=== PATIENT | male | born 1985 | race Asian ===

== ENCOUNTER 2018-10-18 06:27 | Day surgery (SDC) | payer OTHER ==
[~2018-10-18] VITALS: Ht 177.8 cm; Wt 79.0 kg
[~2018-10-18 06:27] MED LIST: NOCURR; RINGERS SOLUTION,LACTATED 1,000 ML IV ONE
[2018-10-18] MEDS ORDERED: PROPOFOL 1% 20 ML VIAL IVP ONE (06:28)
[2018-10-18] MEDS ORDERED: ONDANSETRON HCL 4 MG/2 ML VIAL IVP ONE (06:28)
[2018-10-18] MEDS ORDERED: ROCURONIUM BROMIDE 10 MG/ML 5 ML VIAL IVP ONE (06:28)
[2018-10-18] MEDS ORDERED: ESMOLOL HCL 10 MG/ML 10 ML VIAL IVP ONE (06:28)
[2018-10-18] MEDS ORDERED: DEXAMETHASONE SOD PHOS 4 MG/ML VIAL IVP ONE (06:28)
[2018-10-18] MEDS ORDERED: NEOSTIGMINE METHYLSULFATE 1 MG/ML 10 ML VIAL IVP ONE (06:28)
[2018-10-18] MEDS ORDERED: LIDOCAINE/PF 2% 5 ML VIAL IM ONE (06:28)
[2018-10-18] MEDS ORDERED: EPHEDrine SULFATE 50 MG/ML VIAL IM ONE (06:28)
[2018-10-18] MEDS ORDERED: MIDAZOLAM HCL 2 MG/2 ML VIAL IVP ONE (06:28)
[2018-10-18] MEDS ORDERED: GLYCOPYRROLATE 0.2 MG/ML VIAL IM ONE (06:28)
[2018-10-18] MEDS ORDERED: FentaNYL CITRATE-PF 100 MCG/2 ML VIAL IVP ONE (06:28)
[2018-10-18] MEDS ORDERED: RINGERS SOLUTION,LACTATED 1,000 ML IV ONE (06:30)
[2018-10-18] MEDS ORDERED: ATOR10TA84 PO (06:59)
[2018-10-18] MEDS ORDERED: METF-445 PO (06:59)
[2018-10-18 07:49] LABS: PROTHROMBIN TIME 10.6 SEC (9.4-11.6)
[2018-10-18] MEDS ORDERED: FentaNYL CITRATE-PF 100 MCG/2 ML VIAL IVP PRN ×2 (08:15)
[2018-10-18] MEDS ORDERED: MEPERIDINE-PF 25 MG/ML VIAL IVP PRN ×2 (08:15)
[2018-10-18] MEDS ORDERED: HYDROmorphone 2 MG/ML SYRINGE IVP PRN ×2 (08:15)
[2018-10-18 08:24] LABS: GLUCOMETER DEV NAME(LOC) SDS.; GLUCOSE,POINT OF CARE 110 MG/DL (70-110)
[2018-10-18] MEDS ORDERED: AMPICILLIN SODIUM 1 GM/VIAL ONE (09:02)
== END 2018-10-18 11:40 | disposition home or self-care (01) ==
LOC: SURGERY 06:27
PROVIDERS: ATTEND Dentist General Practice
DX: K05.30 Chronic periodontitis, unspecified (principal); E78.5 Hyperlipidemia, unspecified; E11.9 Type 2 diabetes mellitus without complications; I10 Essential (primary) hypertension; Z79.899 Other long term (current) drug therapy
CPT/HCPCS: 36415; 41899; 71045; 82962; 85610; 85730; 93005; J0290; J1100; J2250; J2405; J2704; J3010; J3490 ×5; J7120

== ENCOUNTER 2020-09-24 06:28 | Day surgery (SDC) | payer OTHER, MEDICAID ==
[~2020-09-24] VITALS: Ht 172.7 cm; Wt 77.3 kg
[~2020-09-24 06:28] MED LIST changes: +ATOR10TA84 PO; +METF-445 PO; -NOCURR; +VANCOMYCIN HCL 1 GM/VIAL ONE
[2020-09-24] MEDS ORDERED: RINGERS SOLUTION,LACTATED 1,000 ML IV ONE (06:30)
[2020-09-24] MEDS ORDERED: AMPICILLIN SODIUM 1 GM/VIAL ONE (07:25)
[2020-09-24] MEDS ORDERED: SODIUM CHLORIDE 0.9% 100 ML ONE (07:26)
[2020-09-24 07:33] LABS: BASOPHILS % (AUTO) 0.3 % (0.0-2.0); EOSINOPHILS % (AUTO) 6.9 % (1.0-6.0); HEMATOCRIT 45.3 % (41-53); HEMOGLOBIN 15.4 g/dL (13.5-17.5); LYMPHOCYTES % (AUTO) 27.7 % (22.0-44.0); MEAN CORPUSCULAR HEMOGLOBIN 28.7 pg (26.0-34.0); MEAN CORPUSCULAR VOLUME 85 fL (80-100); MONOCYTES # (AUTO) 0.6 K/uL (0.1-1.0); MONOCYTES % (AUTO) 8.3 % (2.0-9.0); NEUTROPHILS # (AUTO) 4.1 K/uL (1.8-7.7); NEUTROPHILS % (AUTO) 56.8 % (40.0-70.0); PLATELET COUNT (AUTO) 243 K/uL (150-450); RED BLOOD CELL COUNT(AUTO) 5.36 MIL/uL (4.50-5.90); RED CELL DISTRIBUTION WIDTH 12.9 % (11.5-14.5)
[2020-09-24 07:45] LABS: ANION GAP 7 mmol/L (8-16); CALCIUM, TOTAL 9.3 mg/dL (8.8-10.5); CARBON DIOXIDE 26 mmol/L (22-29); CHLORIDE 102 mmol/L (98-107); CREATININE 0.93 mg/dL (0.60-1.30); GLOMERULAR FILTR. RATE CALC > 60 mL/min (>60); GLUCOSE,RANDOM 108 mg/dL (70-110); SODIUM SERUM 135 mmol/L (136-145); UREA NITROGEN, BLOOD 20 mg/dL (7-18)
[2020-09-24 07:50] LABS: ALANINE AMINOTRANSFERASE 81 U/L (12-78); ALBUMIN 4.4 g/dL (3.4-5.0); ALKALINE PHOSPHATASE 199 U/L (46-116); ASPARTATE AMINOTRANSFERASE 31 U/L (15-37); BILIRUBIN,TOTAL 1.2 mg/dL (0.1-1.0); TOTAL PROTEIN, SERUM 7.9 g/dL (6.4-8.2)
[2020-09-24 07:51] LABS: PROTHROMBIN TIME 10.9 SEC (9.4-11.6)
[2020-09-24 08:04] LABS: COVID AG,FIA SOURCE NASOPHARYNGEAL
[2020-09-24] MEDS ORDERED: ACETAMINOPHEN 1000 MG/ISO-OSM 100 ML IV ONE (09:29)
[2020-09-24] MEDS ORDERED: OXYGEN THERAPY IH SCH (09:30)
[2020-09-24] MEDS ORDERED: MEPERIDINE-PF 25 MG/ML VIAL IVP PRN (09:30)
[2020-09-24] MEDS ORDERED: HYDROmorphone 2 MG/ML VIAL IVP PRN (09:30)
[2020-09-24] MEDS ORDERED: FentaNYL CITRATE PF 100 MCG/2 ML VIAL IVP PRN (09:30)
[2020-09-24] MEDS ORDERED: FentaNYL CITRATE PF 100 MCG/2 ML VIAL IVP ONE (12:00)
[2020-09-24] MEDS ORDERED: MIDAZOLAM HCL 2 MG/2 ML VIAL IVP ONE (12:00)
== END 2020-09-24 11:15 | disposition home or self-care (01) ==
LOC: SURGERY 06:28
PROVIDERS: ATTEND Dentist General Practice
DX: K02.9 Dental caries, unspecified (principal); K05.30 Chronic periodontitis, unspecified; K03.6 Deposits [accretions] on teeth; I10 Essential (primary) hypertension; E78.00 Pure hypercholesterolemia, unspecified; E11.9 Type 2 diabetes mellitus without complications; E78.5 Hyperlipidemia, unspecified; Z98.890 Other specified postprocedural states; Z79.899 Other long term (current) drug therapy
CPT/HCPCS: 36415; 41899; 71045; 80053; 85025; 85610; 85730; 87426; 93005; C9803; J0131; J0290; J2250; J3010; J3370; J7050; J7120

== ENCOUNTER 2022-02-27 20:49 | Emergency (ER) | payer OTHER ==
[~2022-02-27] VITALS: Ht 170.2 cm; Wt 79.0 kg
[~2022-02-27 20:49] MED LIST changes: -RINGERS SOLUTION,LACTATED 1,000 ML IV ONE; -VANCOMYCIN HCL 1 GM/VIAL ONE
[2022-02-27] MEDS ORDERED: ACETAMINOPHEN 500 MG TABLET PO ONE (22:30)
[2022-02-27] MEDS ORDERED: PROPARACAINE HCL 0.5% 15 ML OPHTHALMIC SOLUTION OU ONE (22:30)
[2022-02-27] MEDS ORDERED: GENTAMICIN SULFATE 0.3% OPHTHALMIC SOLUTION 5 ML OU ONE (22:30)
[2022-02-27] MEDS ORDERED: ACET-66 PO (22:37)
[2022-02-27] MEDS ORDERED: CEPH-558 PO (22:37)
[2022-02-27] MEDS ORDERED: BACI28OI29 TP (22:37)
[2022-02-27 23:02] VITALS: BP 138/82
== END 2022-02-27 23:08 | disposition home or self-care (01) ==
LOC: EMS 20:50
DX: H10.9 Unspecified conjunctivitis (principal); S50.811A Abrasion of right forearm, initial encounter; R62.50 Unspecified lack of expected normal physiological development in childhood; W55.03XA Scratched by cat, initial encounter; Y93.89 Activity, other specified; Y92.89 Other specified places as the place of occurrence of the external cause; Y99.8 Other external cause status
CPT/HCPCS: 99283; 99284

== ENCOUNTER 2025-06-12 06:20 | Day surgery (SDC) | payer OTHER ==
[~2025-06-12] VITALS: Ht 172.7 cm; Wt 77.7 kg
[~2025-06-12 06:20] MED LIST changes: +ACET-66 PO; +ATOR10TA PO; -ATOR10TA84 PO; +BACI28.410 TP; +CEPH-558 PO; +RINGERS SOLUTION,LACTATED 1,000 ML IV ONE
[2025-06-12] MEDS ORDERED: SUGAMMADEX SODIUM 200 MG/2 ML VIAL IVP ONE (06:21)
[2025-06-12] MEDS ORDERED: ONDANSETRON HCL 4 MG/2 ML VIAL IVP ONE (06:21)
[2025-06-12] MEDS ORDERED: ROCURONIUM BROMIDE 10 MG/ML 5 ML VIAL IV ONE (06:21)
[2025-06-12] MEDS ORDERED: LIDOCAINE/PF 2% 5 ML VIAL IM ONE (06:21)
[2025-06-12] MEDS ORDERED: PROPOFOL 1% 20 ML VIAL IVP ONE (06:21)
[2025-06-12] MEDS ORDERED: DEXAMETHASONE SOD PHOS 4 MG/ML VIAL IVP ONE (06:21)
[2025-06-12 07:32] LABS: PLATELET COUNT (AUTO) 237 K/uL (150-450); RED BLOOD CELL COUNT(AUTO) 5.76 MIL/uL (4.50-5.90); RED CELL DISTRIBUTION WIDTH 12.9 % (11.5-14.5); WHITE BLOOD COUNT (AUTO) 7.2 K/uL (4.5-11.0)
[2025-06-12 07:44] LABS: CALCIUM, TOTAL 9.1 mg/dL (8.8-10.5); CREATININE 0.82 mg/dL (0.60-1.30); GLOMERULAR FILTR. RATE CALC > 60 mL/min (>60); GLUCOSE,RANDOM 110 mg/dL (70-110); SODIUM SERUM 142 mmol/L (136-145); UREA NITROGEN, BLOOD 13 mg/dL (7-18)
[2025-06-12 07:49] LABS: ASPARTATE AMINOTRANSFERASE 86 U/L (15-37); TOTAL PROTEIN, SERUM 7.9 g/dL (6.4-8.2)
[2025-06-12] MEDS ORDERED: AMPICILLIN SODIUM 2 GM/NS 100 ML IV ONE (08:11)
[2025-06-12] MEDS: RINGERS SOLUTION,LACTATED 1,000 ML IV ONE (11:17)
== END 2025-06-12 14:00 | disposition home or self-care (01) ==
LOC: SDS 06:20
PROVIDERS: ATTEND Dentist General Practice
DX: K05.20 Aggressive periodontitis, unspecified (principal); K02.9 Dental caries, unspecified; K03.6 Deposits [accretions] on teeth; I10 Essential (primary) hypertension; E11.9 Type 2 diabetes mellitus without complications; E78.00 Pure hypercholesterolemia, unspecified
CPT/HCPCS: 71045; 80053; 85025; 85610; 85730; 93005; J0290; J1100; J2405; J2704; J3490; J7120; 36415-L1; 36415-TC